=== PATIENT | female | born 1930 | race Caucasian/White ===

== ENCOUNTER 2016-10-28 19:33 | Observation (INO) | payer OTHER, MEDICARE ==
[~2016-10-28] VITALS: Ht 165.1 cm; Wt 80.6 kg
[2016-10-28 20:43] LABS: HEMATOCRIT 37.6 % (36.0-46.0); MCH 28.6 PG (29.0-34.0); MCHC 32.4 G/DL (30.0-36.0); MCV 88.3 FL (83-99); MEAN PLAT.VOLUME 9.7 uM^3 (9.5-12.4); PLATELET COUNT 266 K/uL (156-360); RBC DIS.WIDTH-CV 13.5 % (11.8-14.6); RBC DIS.WIDTH-SD 42.7 % (39-53); RED BLOOD COUNT 4.26 M/uL (3.80-5.20); WHITE BLOOD COUNT 8.5 K/uL (4.1-10.2)
[2016-10-28 20:50] LABS: CHLORIDE 105 mEq/L (99-109); POTASSIUM 4.1 mEq/L (3.7-5.4); SODIUM 142 mEq/L (136-147)
[2016-10-28 20:52] LABS: GLUCOSE 59 mg/dL (70-99); INTER. NORMALIZED RATIO 1.1; PROTHROMBIN TIME 10.7 (9.2-11.2); PTT 27.1 (25-32)
[2016-10-28 20:53] LABS: ANION GAP 10 MEQ/L (2-14)
[2016-10-28 20:56] LABS: GFR ESTIMATE (CALCULATED) 50 mL/min/
[2016-10-28 20:57] LABS: UREA NITROGEN (BUN) 33 mg/dL (9-23)
[2016-10-28 21:03] LABS: TROP-I INTERPRETATION NEGATIVE; TROPONIN-I < 0.01 ng/mL (0.0-0.30)
[2016-10-28 21:37] LABS: POINT-OF-CARE METER ID UU14100415
[2016-10-28] MEDS ORDERED: CLONIDINE HCL0.2 MG PO ×2 (21:49→21:50)
[2016-10-28] MEDS ORDERED: GLIPIZIDE ER2.5 MG PO ×2 (21:50→21:51)
[2016-10-28] MEDS ORDERED: ATORVASTATIN CA20 MG PO (21:50)
[2016-10-28] MEDS ORDERED: LOSARTAN-HCTZ1 EAC1 PO (21:50)
[2016-10-28] MEDS ORDERED: METOPROLOL TART50 MG PO (21:50)
[2016-10-28] MEDS ORDERED: SYNTHROID125 MCG PO (21:50)
[2016-10-28] MEDS ORDERED: SENNA PO (21:51)
[2016-10-28] MEDS ORDERED: LO-DOSE ASPIRIN81 M2 PO (21:51)
[2016-10-28] MEDS ORDERED: SENNA8.6 MG PO (21:51)
[2016-10-28] MEDS ORDERED: [UNRECOGNIZED DRUG - OTHER] PO (21:51)
[2016-10-28] MEDS ORDERED: AMMONIUM LACTA224 GM TP (21:51)
[2016-10-29 01:01] VITALS: BP 178/76
[2016-10-29 03:40] VITALS: BP 181/74
[2016-10-29 03:50] VITALS: BP 168/69
[2016-10-29 06:21] LABS: POINT-OF-CARE METER ID UU14162513
[2016-10-29 09:00] VITALS: BP 189/90
[2016-10-29 10:12] LABS: POINT-OF-CARE METER ID UU14162513
[2016-10-29 12:46] VITALS: BP 117/55
[2016-10-29] MEDS ORDERED: GLIPIZIDE ER2.5 MG PO (13:49)
[2016-10-29 14:53] LABS: POINT-OF-CARE METER ID UU14162513
== END 2016-10-29 18:45 | disposition home health service (06) ==
LOC: EME 19:33 → EDOF 21:58 → 5WEST 21:58
PROVIDERS: Emergency Medicine; Hospitalist
DX: R42 Dizziness and giddiness (principal); E11.649 Type 2 diabetes mellitus with hypoglycemia without coma; I10 Essential (primary) hypertension; R00.1 Bradycardia, unspecified; E78.5 Hyperlipidemia, unspecified; F41.9 Anxiety disorder, unspecified; K21.9 Gastro-esophageal reflux disease without esophagitis; Z85.3 Personal history of malignant neoplasm of breast; M19.90 Unspecified osteoarthritis, unspecified site; G89.29 Other chronic pain; M54.9 Dorsalgia, unspecified; G90.521 Complex regional pain syndrome I of right lower limb; E66.9 Obesity, unspecified; Z68.29 Body mass index [BMI] 29.0-29.9, adult
CPT/HCPCS: 70450; 70551; 71020; 80048; 82948; 84484; 85027; 85610; 85730; 93005; 99281; 99285; G0378; G8987 GO CI; G8988 GO CH; J0360; J1644; J1815